=== PATIENT | male | born 1980 | race Caucasian/White ===

== ENCOUNTER → 2021-04-16 | Day surgery (SDC) | payer OTHER ==
[~2021-04-16] VITALS: Ht 175.3 cm; Wt 93.0 kg
[~2021-04-16] MED LIST: NORCO 5-325 TA1 EACH PO; ONDANSETRON ODT8 MG PO; PERCOCET 5-3251 EACH PO
[2021-04-16 08:18] LABS: HCT 45.6 % (42.0-52.0); HGB 15.6 g/dl (13.2-18.0); MCH 31.3 pg (25.0-31.0); MCHC 34.2 g/dL (32.0-36.0); MCV 91.6 fL (78.0-100.0); MPV 9.2 fL (6.0-9.5); RBC 4.98 M/uL (4.70-6.00); RDW 12.5 % (11.5-14.0); WBC 7.6 K/uL (4.0-10.5)
[2021-04-16 08:35] LABS: ALBUMIN 3.8 g/dL (3.4-5.0); BILIRUBIN - TOTAL 0.5 mg/dL (0.2-1.0); BUN/CREAT RATIO (CALC) 14.4 RATIO; CREATININE 0.9 mg/dL (0.67-1.17); GLOBULIN (CALCULATION) 3.5 g/dL; POTASSIUM 4.2 mmol/L (3.5-5.1); TOTAL PROTEIN 7.3 g/dL (6.4-8.2)
== END | disposition home or self-care (01) ==
LOC: FAS 07:29
PROVIDERS: Surgery
DX: K43.0 Incisional hernia with obstruction, without gangrene (principal)
CPT/HCPCS: 36415; 80053; 93005; J2250; J2405; J2704; J3010; J7120